=== PATIENT | female | born 1975 | race Caucasian/White ===

== ENCOUNTER 2020-09-23 11:57 | Observation (INO) ==
[2020-09-23] MEDS ORDERED: KETOROLAC 30 MG/1 ML VIAL IV STA (13:04)
[2020-09-23 13:13] LABS: Basophils # 0.1 10*3/uL (0.0-0.2); Basophils % 1.2 % (0.0-0.8); Eosinophils # 0.2 10*3/uL (0.0-0.87); Eosinophils % 2.7 % (0.00-10.9); Hematocrit 35.8 VOL% (35.7-47.0); Hemoglobin 10.7 GM/DL (12.0-16.0); Immature Granulocytes % 0.7 %; Immature Granulocytes Absolute 0.06 #; Lymphocytes # 1.7 10*3/uL (1.4-4.0); Lymphocytes % 19.6 % (21.3-54.2); Mean Corpuscular HGB Conc 29.9 GM/DL (32-36); Mean Corpuscular Volume 75.5 FL (87-102); Mean Platelet Volume 10.1 FL (9.6-12.0); Monocytes % 6.9 % (1.7-12.7); Neutrophils % 68.9 % (38.7-73.9); Platelet Count 277 T/CUMM (130-400); Red Blood Count 4.74 MC/CUMM (3.8-5.5); Red Cell Distribution Width 19.7 % (9.3-17.3); White Blood Count 8.5 T/CUMM (4-12)
[2020-09-23 13:24] LABS: INR 1.1; Partial Thromboplastin Time 25.8 SECS (23.9-33.8)
[2020-09-23 13:34] LABS: Albumin 3.9 G/DL (3.4-5.0); Bilirubin,Total 0.6 MG/DL (0.2-1.0); Calcium 8.8 MG/DL (8.5-10.1); Osmolality,Calculated 277.4 MOS/KG (273-304); Total Protein 6.9 G/DL (6.4-8.2)
[2020-09-23] MEDS ORDERED: DEXTROSE 50% 25 GM/50 ML VIAL IV PRN (14:53)
[2020-09-23] MEDS ORDERED: GLUCAGON 1 MG VIAL IM PRN (14:53)
[2020-09-23] MEDS ORDERED: ACETAMINOPHEN 325 MG TABLET PO PRN (14:53)
[2020-09-23] MEDS ORDERED: hydrALAZINE 20 MG/1 ML VIAL ONE (15:17)
[2020-09-23] MEDS ORDERED: hydrALAZINE 20 MG/1 ML VIAL IV STA (15:22)
[2020-09-23] MEDS ORDERED: tiZANidine 4 MG TABLET PO SCH (21:00)
[2020-09-23] MEDS: NITROGLYCERIN SL 0.4 MG TABLET SL PRN ×3 (22:39→22:51)
[2020-09-23] MEDS: MORPHINE 4 MG/1 ML VIAL IV PRN (23:18)
[2020-09-24 01:21] LABS: Basophils # 0.1 10*3/uL (0.0-0.2); Basophils % 1.1 % (0.0-0.8); Eosinophils # 0.2 10*3/uL (0.0-0.87); Eosinophils % 3.2 % (0.00-10.9); Hematocrit 30.5 VOL% (35.7-47.0); Hemoglobin 9.1 GM/DL (12.0-16.0); Immature Granulocytes % 0.2 %; Immature Granulocytes Absolute 0.01 #; Lymphocytes # 1.5 10*3/uL (1.4-4.0); Lymphocytes % 25.4 % (21.3-54.2); Mean Corpuscular HGB Conc 29.8 GM/DL (32-36); Mean Corpuscular Volume 74.6 FL (87-102); Mean Platelet Volume 9.8 FL (9.6-12.0); Monocytes % 9.3 % (1.7-12.7); Neutrophils % 60.8 % (38.7-73.9); Platelet Count 216 T/CUMM (130-400); Red Blood Count 4.09 MC/CUMM (3.8-5.5); Red Cell Distribution Width 19.4 % (9.3-17.3); White Blood Count 5.7 T/CUMM (4-12)
[2020-09-24 01:45] LABS: Calcium 8.3 MG/DL (8.5-10.1); Osmolality,Calculated 280.3 MOS/KG (273-304); Potassium 3.1 MMOL/L (3.5-5.1); Risk Ratio 2.56; VLDL CHOLESTEROL 7.8 MG/DL
[2020-09-24] MEDS: MORPHINE 4 MG/1 ML VIAL IV PRN ×2 (03:44→08:03)
[2020-09-24] MEDS ORDERED: LEVOTHYROXINE 112 MCG TABLET PO SCH (06:30)
[2020-09-24] MEDS ORDERED: POTASSIUM CHLORIDE 20 MEQ TABLET PO ONE (08:14)
[2020-09-24] MEDS ORDERED: ENOXAPARIN 30 MG/0.3 ML SYRINGE SUBCUT SCH (08:30)
[2020-09-24] MEDS ORDERED: ERGOCALCIFEROL 50,000 UNIT CAPSULE PO SCH (09:00)
[2020-09-24] MEDS ORDERED: PANTOPRAZOLE 40 MG TABLET PO SCH (09:00)
[2020-09-24] MEDS ORDERED: FERROUS SULFATE 325 MG TABLET PO SCH (09:00)
[2020-09-24] MEDS ORDERED: DIAZEPAM 5 MG TABLET PO ONE (09:22)
[2020-09-24] MEDS ORDERED: SODIUM CHLORIDE 0.9% 1,000 ML IV SCH (09:30)
[2020-09-24] MEDS ORDERED: HEPARIN/NACL 0.9% 2 UNITS/ML 2,000 UNIT/1,000 ML BAG IV ONE (09:33)
[2020-09-24] MEDS ORDERED: LIDOCAINE 1% 20 ML VIAL ONE (09:33)
[2020-09-24 09:40] LABS: Barbiturates Screen,Urine Negative (Negative); Benzodiazepines Screen,Urine Negative (Negative); Cannabinoid Screen,Urine Negative (Negative); Opiate Screen,Urine Positive (Negative); Phencyclidine Screen,Urine Negative (Negative)
[2020-09-24] MEDS ORDERED: fentaNYL 100 MCG/2 ML VIAL ONE ×2 (09:58→10:19)
[2020-09-24] MEDS ORDERED: MIDAZOLAM 2 MG/2 ML VIAL ONE ×4 (09:58→10:30)
[2020-09-24] MEDS ORDERED: MORPHINE 10 MG/1 ML VIAL ONE (10:42)
[2020-09-24] MEDS ORDERED: ONDANSETRON 4 MG/2 ML VIAL IV PRN (10:49)
[2020-09-24 16:32] VITALS: BP 149/66
[2020-09-25] MEDS ORDERED: LISINOPRIL/HCTZ 10-12.5 MG TABLET PO SCH (09:00)
== END 2020-09-24 17:45 | disposition home or self-care (01) ==
LOC: N.ED 11:57 → N.EDINP 11:57 → N.TELEN 17:41
PROVIDERS: ADMIT Internal Medicine; ATTEND Internal Medicine
PROC: CLCCHCL (ICD-10-PCS; 2020-09-24 10:45)